=== PATIENT | female | born 1955 | race Caucasian/White ===

== ENCOUNTER 2017-12-23 19:08 | Emergency (ER) | payer BC ==
[~2017-12-23] VITALS: Ht 157.5 cm; Wt 69.0 kg
[~2017-12-23 19:08] MED LIST: AMLODIPINE BES2.5 MG PO; AMLODIPINE BESYL5 MG PO; APRESOLINE50 MG PO; ATORVASTATIN CA40 MG PO; B COMPLEX #11 EACH PO; B-100 COMPLEX1 EACH PO; CALCITRIOL0.25 MCG PO; CLONIDINE HCL0.1 MG PO; CLONIDINE HCL0.2 MG PO; CLONIDINE1 EAC1 TD; ENDOCET 5-3251 EACH PO; ERGOCALCIF50000 UNIT PO; FLUOXETINE HCL20 MG PO; HYDROCHLOROTHIA25 MG PO; HYGROTON25 MG PO; LABETALOL HCL200 MG PO; LASIX20 MG PO; LEVEMIR FL100 UNITS/ SC; LEVEMIR100 UNIT/2 SC; LIPITOR40 MG PO; METOLAZONE2.5 MG PO; NOVOLOG PE100 UNITS/ SC; PREVACID SOLUTA30 MG PO; PREVACID15 MG PO; PROZAC20 MG PO; ROCALTROL0.25 MCG PO; SYNTHROID125 MCG PO; VITAMIN D250000 UNIT PO; VITAMIN D3 PO
[2017-12-23 20:40] LABS: HEMATOCRIT 34.8 % (36.0-46.0); HEMOGLOBIN 11.1 G/DL (11.9-15.5); MCH 28.6 PG (29.0-34.0); MCHC 31.9 G/DL (30.0-36.0); MCV 89.7 FL (83-99); PLATELET COUNT 233 K/uL (156-360); RBC DIS.WIDTH-CV 13.1 % (11.8-14.6); RBC DIS.WIDTH-SD 43.2 % (39-53); RED BLOOD COUNT 3.88 M/uL (3.80-5.20); WHITE BLOOD COUNT 9.1 K/uL (4.1-10.2)
[2017-12-23 20:48] LABS: ALBUMIN 4.1 g/dL (3.2-4.8)
[2017-12-23 20:49] LABS: CHLORIDE 108 mEq/L (99-109); POTASSIUM 5.2 mEq/L (3.7-5.4); SODIUM 142 mEq/L (136-147)
[2017-12-23 20:51] LABS: GLUCOSE 109 mg/dL (70-99); TOTAL PROTEIN 7.4 g/dL (6.4-8.3)
[2017-12-23 20:53] LABS: TOTAL BILIRUBIN 0.4 mg/dL (0.0-1.0)
[2017-12-23 20:54] LABS: ALKALINE PHOSPHATASE 107 IU/L (3-129)
[2017-12-23 20:55] LABS: CREATININE 1.8 mg/dL (0.6-1.3); GFR ESTIMATE (CALCULATED) 30 mL/min/
[2017-12-23 20:56] LABS: AST (GOT) 70 IU/L (2-34); UREA NITROGEN (BUN) 44 mg/dL (9-23)
[2017-12-23 20:57] LABS: DIRECT BILIRUBIN 0.2 mg/dL (0.0-0.3)
[2017-12-23 20:58] LABS: ALT (GPT) 115 IU/L (3-49); LIPASE 22 U/L (1.0-51.0)
[2017-12-23 22:32] VITALS: BP 126/62
== END 2017-12-23 23:29 | disposition home or self-care (01) ==
LOC: EME → EDBD 19:08 → EME 19:08
PROVIDERS: Emergency Medicine
DX: T38.3X1A Poisoning by insulin and oral hypoglycemic [antidiabetic] drugs, accidental (unintentional), initial encounter (principal); E11.649 Type 2 diabetes mellitus with hypoglycemia without coma; E11.22 Type 2 diabetes mellitus with diabetic chronic kidney disease; I12.9 Hypertensive chronic kidney disease with stage 1 through stage 4 chronic kidney disease, or unspecified chronic kidney disease; N18.9 Chronic kidney disease, unspecified; Z79.4 Long term (current) use of insulin; E78.5 Hyperlipidemia, unspecified; F32.9 Major depressive disorder, single episode, unspecified; K21.9 Gastro-esophageal reflux disease without esophagitis; Z86.73 Personal history of transient ischemic attack (TIA), and cerebral infarction without residual deficits; Z87.891 Personal history of nicotine dependence; Z88.8 Allergy status to other drugs, medicaments and biological substances
CPT/HCPCS: 80048; 80076; 81003; 82948; 83690; 85027; 87086; 99281; 99285

== ENCOUNTER 2018-03-09 19:38 | Emergency (ER) | payer OTHER, BC ==
[2018-03-09 20:04] LABS: BASOPHIL (%) 1.2 % (0-1); BASOPHIL COUNT 0.1 K/uL (0-0.1); EOSINOPHIL (%) 11.9 % (0-5); EOSINOPHIL COUNT 1.1 K/uL (0-0.3); HEMATOCRIT 32.5 % (36.0-46.0); HEMOGLOBIN 10.6 G/DL (11.9-15.5); IMMATURE GRANULOCYTE (%) 0.5 % (0.0-0.7); LYMPHOCYTE (%) 38.7 % (15-42); LYMPHOCYTE COUNT 3.4 K/uL (1.0-2.8); MCH 28.6 PG (29.0-34.0); MCHC 32.6 G/DL (30.0-36.0); MCV 87.6 FL (83-99); MONOCYTE (%) 9.6 % (3-12); MONOCYTE COUNT 0.9 K/uL (0-0.8); NEUTROPHIL (%) 38.1 % (45-76); NEUTROPHIL COUNT 3.4 K/uL (1.8-6.4); PLATELET COUNT 250 K/uL (156-360); RBC DIS.WIDTH-CV 13.5 % (11.8-14.6); RBC DIS.WIDTH-SD 42.2 % (39-53); RED BLOOD COUNT 3.71 M/uL (3.80-5.20); WHITE BLOOD COUNT 8.8 K/uL (4.1-10.2)
[2018-03-09 20:16] LABS: AMYLASE 44 IU/L (1-118); CHLORIDE 110 mEq/L (99-109)
[2018-03-09 20:17] LABS: SODIUM 141 mEq/L (136-147)
[2018-03-09 20:21] LABS: SERUM ETHYL ALCOHOL < 10 mg/dL
[2018-03-09 20:22] LABS: CREATININE 2.5 mg/dL (0.6-1.3); GFR ESTIMATE (CALCULATED) 21 mL/min/
[2018-03-09 20:23] LABS: UREA NITROGEN (BUN) 48 mg/dL (9-23)
[2018-03-09 20:25] LABS: LIPASE 33 U/L (1.0-51.0)
[2018-03-09 20:26] LABS: GLUCOSE 35 mg/dL (70-99)
== END 2018-03-09 22:33 | disposition home or self-care (01) ==
LOC: TRA 19:38
PROVIDERS: Emergency Medicine
DX: E11.649 Type 2 diabetes mellitus with hypoglycemia without coma (principal); S01.512A Laceration without foreign body of oral cavity, initial encounter; Z79.4 Long term (current) use of insulin; V48.0XXA Car driver injured in noncollision transport accident in nontraffic accident, initial encounter; Y92.410 Unspecified street and highway as the place of occurrence of the external cause; N28.9 Disorder of kidney and ureter, unspecified; Z87.891 Personal history of nicotine dependence
CPT/HCPCS: 70450; 71250; 72125; 72128; 72131; 74176; 80048; 81003; 82150; 82948; 83690; 85025; 86850; 86900; 86901; 99281; 99285; G0480